=== PATIENT | female | born 1995 | race Caucasian/White ===

== ENCOUNTER 2025-03-17 21:04 | Emergency (ER) | payer OTHER ==
[~2025-03-17] VITALS: Ht 165.1 cm; Wt 49.9 kg
[2025-03-17] MEDS ORDERED: LIDOCAINE 2%-EPI 1:100,000 30 ML VIAL ONE (21:32)
[2025-03-17] MEDS: LIDOCAINE 2%-EPI 1:100,000 30 ML VIAL TP ONE (21:33)
[2025-03-17] MEDS ORDERED: IBUPROFEN 600 MG TABLET ONE (22:22)
[2025-03-17] MEDS ORDERED: ACETAMINOPHEN ES 500 MG TABLET ONE (22:22)
[2025-03-17] MEDS: ACETAMINOPHEN ES 500 MG TABLET PO ONE (22:25)
[2025-03-17] MEDS: IBUPROFEN 600 MG TABLET PO ONE (22:25)
[2025-03-17 23:03] VITALS: BP 127/80; TEMP 98.2; O2SAT 98
== END 2025-03-17 23:09 | disposition left against medical advice (07) ==
LOC: ER 21:07
DX: S61.511A Laceration without foreign body of right wrist, initial encounter (principal); W25.XXXA Contact with sharp glass, initial encounter; Y93.89 Activity, other specified; Y92.89 Other specified places as the place of occurrence of the external cause; Y99.8 Other external cause status
CPT/HCPCS: 99284; J3490